=== PATIENT | female | born 1980 | race Caucasian/White ===

== ENCOUNTER 2022-12-19 06:29 | Day surgery (SDC) | payer SELFPAY ==
[~2022-12-19 06:29] MED LIST: ceFAZolin 2 GM in Premix Bag 1 BAG IV ONE
[2022-12-19] MEDS ORDERED: Lactated Ringers 1,000 ML IV SCH (06:30)
[2022-12-19] MEDS ORDERED: Lidocaine 2% 5 ML SDV ONE (07:46)
[2022-12-19] MEDS ORDERED: Propofol 200 MG/20 ML SDV ONE (07:46)
[2022-12-19] MEDS ORDERED: Metoclopramide 10 MG/2 ML SDV IVPUSH PRN (07:58)
[2022-12-19] MEDS ORDERED: fentaNYL 50 MCG/ML SDV IVPUSH PRN (07:58)
[2022-12-19] MEDS ORDERED: Naloxone 0.4 MG/ML SDV IVPUSH PRN (07:58)
[2022-12-19] MEDS ORDERED: Ondansetron 4 MG/2 ML SDV IVPUSH PRN (07:58)
[2022-12-19] MEDS ORDERED: HYDROmorphone 1 MG/ML Syringe IVPUSH PRN (07:58)
[2022-12-19] MEDS ORDERED: Albuterol 0.083% 2.5 MG/3 ML Neb Soln NEB PRN (07:58)
[2022-12-19] MEDS ORDERED: Morphine 2 MG/ML SYRINGE IVPUSH PRN (07:58)
[2022-12-19] MEDS ORDERED: Chloroprocaine 10 MG/ML 5 ML Amp ONE (07:59)
[2022-12-19] MEDS ORDERED: Lidocaine 1% 20 ML MDV ONE (08:16)
[2022-12-19] MEDS ORDERED: ePHEDrine 50 MG/ML SDV ONE (08:26)
[2022-12-19] MEDS ORDERED: Water For Injection, Sterile 20 ML ONE (08:26)
[2022-12-19] MEDS ORDERED: ceFAZolin 2 GM Vial ONE (08:26)
[2022-12-19] MEDS ORDERED: Acetaminophen/oxyCODONE 325-5 MG Tab PO PRN (08:55)
== END 2022-12-19 11:57 | disposition home or self-care (01) ==
LOC: MW.SDS 06:29
PROVIDERS: ATTEND Obstetrics & Gynecology
DX: O34.42 Maternal care for other abnormalities of cervix, second trimester (principal); O09.522 Supervision of elderly multigravida, second trimester; O34.82 Maternal care for other abnormalities of pelvic organs, second trimester; N83.209 Unspecified ovarian cyst, unspecified side; O99.282 Endocrine, nutritional and metabolic diseases complicating pregnancy, second trimester; E07.9 Disorder of thyroid, unspecified; F17.210 Nicotine dependence, cigarettes, uncomplicated; Z98.890 Other specified postprocedural states; Z79.899 Other long term (current) drug therapy; Z3A.18 18 weeks gestation of pregnancy
CPT/HCPCS: 59320; J0131; J0690; J2401; J2704; J7120; 00948; J3490